=== PATIENT | female | born 2000 | race Hispanic/Latino ===

== ENCOUNTER 2022-01-15 19:46 | Emergency (ER) | payer SELFPAY ==
[2022-01-15 19:47] VITALS: BP 109/61; PULSE 71; RESP 14; TEMP 36.4; O2SAT 100; BMI 25.6
--- NOTE | 2022-01-15 20:05 | CT_ITS ---
STUDY: CT ABDOMEN AND PELVIS WITH CONTRAST REASON FOR EXAM: Female, 21 years old. Lower abdominal pain with nausea and vomiting for 1 week. RADIATION DOSAGE (If Supplied By Facility): CTDIvol = ( 13.06 ) mGy, DLP = ( 609.90 ) mGycm TECHNIQUE: Transaxial images were obtained from the dome of the diaphragm to the symphysis pubis without oral contrast. IV 100mL Isovue-370 was administered. Sagittal and coronal images were reconstructed. Individualized dose optimization techniques were used for this CT. COMPARISON: None. FINDINGS: The visualized lung bases are unremarkable. The visualized portions of the heart are within normal limits. Normal liver. Or filling defects in the gallbladder without wall thickening or inflammatory change. No biliary ductal dilatation. Normal spleen. Normal pancreas. Normal bilateral adrenal glands. Normal right kidney. Normal left kidney. Normal visualized ureters. Normal visualized stomach. Normal small intestine. Normal colon. The appendix is visualized and appears normal. Normal abdominal aorta. Normal inferior vena cava. Normal retroperitoneum. Normal urinary bladder. Uterus is prominent and anteverted but tilted to the left. There are calcifications centrally with a fluid density mass. The possibility of an intrauterine cannot be entirely ruled out. There is a 2.4 x 4.9 x 2.8 cm right ovarian cyst. Normal left ovary. Prominent vasculature in left broad ligament with. Question pelvic congestion. No free air or free fluid is seen within the abdominal cavity. No pelvic lymphadenopathy. Normal abdominal wall. Normal osseous structures. CT/Abdomen/Pelvis W IV Cont ONLY IMPRESSION: 1. Fluid density mass with adjacent calcifications within the endometrial canal. The possibility of an intrauterine cannot be ruled out. 2. Large right ovarian cyst. 3. Otherwise normal CT of the abdomen and pelvis Electronically Signed: Nitin Gutierrez DO at 21:15 EDT ,
--- NOTE | 2022-01-15 20:07 | ED.VIS.GI ---
HPI HPI - GI History of Present Illness Chief Complaint: Abd Pain Informant: patient and friend Abdominal Pain/Flank Pain Onset: Days Context: Gradual Onset Timing: Continuous Location: RLQ and LLQ Current Severity: Mild Maximum Severity: Mild Worsened by: Nothing Relieved by: Nothing Nausea/Vomiting/Emesis GI Symptom: Positive for Nausea and Vomiting Severity: Mild Diarrhea/Melena/Hematochezia GI Symptom: Negative for Diarrhea, Melena or Hematochezia Associated Symptoms Associated Symptoms: Negative for Dysuria, Frequency, Hematuria or Urgency Narrative Narrative: 21-year-old Spanish female who does not speak Dominican but is a friend in the 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 Patient reportedly had abdominal pain for approximately a week. With associated nausea vomiting. No diarrhea. No dysuria. No hematuria. She has been 1 time and has 1 child. Denies any pelvic pain. No vaginal bleeding or discharge. No melena. No fever. No weight loss. She is never had any abdominal surgeries. Her last menstrual period was approximately 7 days ago around January 08. Prior similar symptoms: No Recent Illness/Hospitalization: No PFSH PFSH Medical History no medical history no medical history Home Medications ondansetron 4 mg disintegrating tablet 4 mg PO Q6H PRN nausea and vomiting #10 tabs 01/15/22 [Rx Last Taken Unknown] Allergy/AdvReac Type Severity Reaction Status Date / Time No Known Allergies Allergy Verified 01/15/22 19:47 Surgical History no surgical history no surgical history Social History Smoking Status: Never smoker ROS ROS ED ROS Narrative Lower abdominal pain with nausea and vomiting. Review of Systems ROS Unobtainable: Denies due to encephalopathy Constitutional Constitutional ED: Denies chills or fever(s) ENT ENT ED: Denies ear pain Cardiovascular Cardiovascular: Denies chest pain Respiratory/Chest Respiratory/Chest: Denies cough Gastrointestinal Gastrointestinal: Reports abdominal pain, nausea and vomiting; Denies constipation, diarrhea or melena Genitourinary Genitourinary ED: Denies dysuria or hematuria Musculoskeletal Musculoskeletal: Denies arthralgias Integumentary Denies abscess Neurologic Neurologic: Denies headache(s) Psychiatric Psychiatric: Denies anxiety Endocrine Endocrinology: Denies polydipsia Hematologic/Lymphatic Hematologic/Lymphatic: Denies easy bleeding Allergic/Immunologic Allergic/Immunologic ED: Denies mouth swelling or tongue swelling EXAM Physical Exam Narrative Exam Narrative: Well-appearing 21-year-old female. Vital signs stable afebrile. H EENT exam unremarkable. Neck nontender. Lungs clear to auscultation bilaterally. Heart regular rhythm rate about 70 no murmur. Abdomen soft nondistended normal bowel sounds no peritoneal signs. No Sosa's sign or McBurney's point tenderness. No hernia or mass. No signs of obstruction. Very mild bilateral lower quadrant tenderness. Moving all 4 extremities. Back nontender. Neurologically moving all 4 extremities. Awake and alert. Const Vital Signs: 01/15/22 19:47 Temperature 97.5 F L Temperature Source Temporal Pulse Rate 71 Respiratory Rate 14 Blood Pressure 109/61 Blood Pressure Mean 77 Pulse Ox 100 Oxygen Delivery Method Room Air Positive well nourished and well developed; Negative for obese, cachectic, contractures or unkempt General Appearance ED: well developed and NAD; Negative for unkempt, cachectic, contractures or pallor Nutritional Appearance: Negative for cachectic or obese HEENT Reports moist mucous membranes normocephalic and atraumatic; Negative for trauma or tenderness Eyes PERRL and EOMs intact bilaterally General Eye ED: Negative for pale conjunctiva or scleral icterus Neck no lymphadenopathy, supple and no JVD General: Negative for tenderness Carotids: Negative for other Lymph Lymphatic: Negative for other Resp normal respiratory effort and clear to auscultation bilaterally Effort and Inspection: Negative for respiratory distress or retractions Auscultation: Negative for rales, rhonchi or wheezes Cardio regular rate, regular rhythm, S1 normal heart sound, S2 normal heart sound and no murmurs Rate: Negative for bradycardia Rhythm: Negative for abnormal rhythm GI non-distended and no masses; Negative for non-tender Inspection: Negative for abdominal distention Auscultation: normoactive bowel sounds Palpation: soft and tender; Negative for guarding, rigid, hepatomegaly, splenomegaly, hernia, mass, pulsatile mass or rebound tenderness present Back/Spine no CVA tenderness General Back: Negative for CVA tenderness Cervical Spine: Negative for cervical spine tenderness Thoracic Spine / Upper Back: Negative for thoracic spinal tenderness Lumbar Spine / Lower Back: Negative for lumbar spinal tenderness Coccyx: Negative for other Extremity full ROM General Extremety ED: Negative for edema or tenderness General Extremity: Negative for edema Neuro moves all extremities Sensorium / Orientation: alert, oriented to person, oriented to place and oriented to time; Negative for orientation impaired, confused, lethargic or stuporous Motor Exam: strength 5/5 throughout Psych mental status grossly normal and thought process normal Appearance: Negative for unkempt Attitude: No agitated Mood & Affect: Negative for depressed, anxious or tearful Skin General Skin Exam: Negative for jaundice or pallor Lesions: no lesions Rashes: no rashes Trauma: Negative for abrasion Nails: Negative for discolored MDM MDM MDM Narrative Medical decision making narrative: 21-year-old female with lower quadrant abdominal pain. Screening labs as well as a CAT scan and urinalysis will be obtained. She will be given Zofran for nausea. She is not in significant pain. IV fluids. Repeat exam patient is doing well at 10:30 PM. Abdomen benign. I discussed with her and the 2 men present in room that she is . Otherwise she has a right ovarian cyst. Ultrasound being obtained. If the ultrasound shows a single live IUP she will be discharged home to follow-up with local [facility]. Written a prescription for Zofran for nausea. Lab Data Attestation: I reviewed the patient's lab results. Lab results narrative: CBC normal white count 9.1. H&H 13.5 and 40. Electrolytes unremarkable gap of 8. Normal BUN and creatinine. Liver enzymes normal. Lipase normal. test positive. Urinalysis shows 10-25 white cells. No bacteria nor nitrates. A culture will be sent CAT scan shows a suspected right ovarian cyst and potential intrauterine . Labs: Laboratory Results - last 24 hr 01/15/22 01/15/22 01/15/22 20:15 20:15 20:15 WBC 9.1 RBC 4.63 Hgb 13.5 Hct 40.4 MCV 87.3 MCH 29.2 MCHC 33.4 RDW Std Deviation 43.0 RDW Coeff of Erica 13.4 Plt Count 316 MPV 9.3 Immature Gran % (Auto) 0.200 Neut % (Auto) 57.3 Lymph % (Auto) 35.1 [place] % (Auto) 6.2 Eos % (Auto) 1.0 Baso % (Auto) 0.2 Absolute Neuts (auto) 5.2 Absolute Lymphs (auto) 3.18 Nucleated RBC % 0 Sodium 138 Potassium 3.8 Chloride 106 Carbon Dioxide 24.0 Anion Gap 8 BUN 8 Creatinine 0.51 L Estim Creat Clear Calc 145.56 Est GFR (MDRD) Af Amer 198 Est GFR (MDRD) Non-Af 164 BUN/Creatinine Ratio 15.7 Glucose 85 Calcium 9.7 Total Bilirubin 0.40 AST 21 ALT 24 Alkaline Phosphatase 89 Total Protein 8.1 Albumin 4.0 Globulin 4.1 Albumin/Globulin Ratio 1.0 Lipase 121 Serum , Qual POSITIVE H Urine Color Urine Clarity Urine pH Ur Specific [place] Urine Protein Urine Glucose (UA) Urine Ketones Urine Occult Blood Urine Nitrite Urine Bilirubin Urine Urobilinogen Ur Leukocyte Esterase Urine RBC Urine WBC Ur Squamous Epith Cells Urine Bacteria Urine Mucus 01/15/22 21:15 WBC RBC Hgb Hct MCV MCH MCHC RDW Std Deviation RDW Coeff of Erica Plt Count MPV Immature Gran % (Auto) Neut % (Auto) Lymph % (Auto) [place] % (Auto) Eos % (Auto) Baso % (Auto) Absolute Neuts (auto) Absolute Lymphs (auto) Nucleated RBC % Sodium Potassium Chloride Carbon Dioxide Anion Gap BUN Creatinine Estim Creat Clear Calc Est GFR (MDRD) Af Amer Est GFR (MDRD) Non-Af BUN/Creatinine Ratio Glucose Calcium Total Bilirubin AST ALT Alkaline Phosphatase Total Protein Albumin Globulin Albumin/Globulin Ratio Lipase Serum , Qual Urine Color Straw Urine Clarity Clear Urine pH 7.0 Ur Specific [place] 1.005 Urine Protein Negative Urine Glucose (UA) Normal Urine Ketones Negative Urine Occult Blood Negative Urine Nitrite Negative Urine Bilirubin Negative Urine Urobilinogen Normal Ur Leukocyte Esterase 500 H Urine RBC 0 SEEN Urine WBC 10-25 SEEN Ur Squamous Epith Cells 0-5 SEEN Urine Bacteria 0 SEEN Urine Mucus 0 SEEN Radiography Diagnostic Testing: Clinical Impression(s) from Imaging Studies Abdomen/Pelvis CT 01/15/22 20:05 IMPRESSION: 1. Fluid density mass with adjacent calcifications within the endometrial canal. The possibility of an intrauterine cannot be ruled out. 2. Large right ovarian cyst. 3. Otherwise normal CT of the abdomen and pelvis Electronically Signed: Nitin Gutierrez DO at 21:15 EDT Reading Location ID and State: [facility] / [place] Tel [phone], Service support , Discharge Plan Triage Chief Complaint: Abd Pain ED Provider: Kalyan Saunders Dx/Rx/DC Orders Clinical Impression: Abdominal pain, First trimester , Ovarian cyst Instructions: Abdominal Pain, 1st Trimester, ED Ovarian Cyst Prescriptions: New ondansetron 4 mg tablet,disintegrating 4 mg PO Q6H PRN (Reason: nausea and vomiting) Qty: 10 0RF Primary Care Provider: Care Physician,No Primary Referrals: Kyung Schmid CNM [Med Staff - Adv Practice Prof] - As soon as possible Ksenia Michaels MD [Med Staff - Courtesy Staff] - As soon as possible Care Physician,No Primary [Primary Care Provider] - Activity Restrictions/Additional Instructions: You are . You also have a cyst on your right ovary. Tylenol for pain. Zofran for nausea. Call and follow-up with either Dr. Ksenia Michaels in [place] or Kyung Schmid here in [place] for your [facility] care. You need to be seen within the next week. Plenty of fluids and rest. Print Language: Burmese Disposition Disposition: Home, Self Care
--- NOTE | 2022-01-15 20:23 | ED.RN ---
lmp 11/19/21
[2022-01-15] MEDS: 0.9% Normal Saline 1,000 ML 1000 ML IV (20:26)
[2022-01-15] MEDS: Ondansetron 4 MG/2 ML Vial IV (20:26)
[2022-01-15 20:33] LABS: Absolute Lymphocyte Count 3.18 X10^3/uL (0.83-4.51); Absolute Neutrophil Count 5.2 X10^3/uL (2.0-7.7); Basophil# 0.02 X10^3/uL; Basophil% 0.2 % (0-1); Eosinophil# 0.09 X10^3/uL; Hematocrit 40.4 % (37-47); Hemoglobin 13.5 g/dL (12.0-15.0); Lymphocyte # 3.18 X10^3/ul (0.83-4.51); Lymphocyte % 35.1 % (19-41); Mean Corp Hgb Conc 33.4 g/dL (32-36); Mean Corpuscular Hgb 29.2 pg (27.0-32.0); Mean Corpuscular Volume 87.3 fL (81-99); Mean Platelet Vol. 9.3 fl (6.2-12.0); Monocyte# 0.56 X10^3/uL; Monocyte% 6.2 % (0-10); NRBC Flagged by Analyzer 0 % (0-5); Neutrophil # 5.19 X10^3/uL (2.7-7.7); Neutrophil % 57.3 % (47-70); Platelet Count 316 K/mm3 (150-450); RBC Distribution Width CV 13.4 % (11.6-14.6); Red Blood Count 4.63 M/mm3 (4.2-5.4); White Blood Count 9.1 K/mm3 (4.4-11.0)
[2022-01-15 20:45] LABS: Internal QC Validated? YES +Cl - CLEAR BKGD
[2022-01-15 20:48] LABS: Pregnancy, Serum, hCG Quali. POSITIVE Negative
[2022-01-15 20:52] LABS: AST(SGOT) 21 U/L (15-37); Alanine Aminotransfer ALT/SGPT 24 U/L (13-56); Alkaline Phosphatase 89 U/L (45-117); Anion Gap 8 (5-15); BUN 8 mg/dL (7-18); BUN/Creat Ratio 15.7 RATIO (10-20); Calcium,Total 9.7 mg/dL (8.5-10.1); Chloride 106 mmol/L (98-107); Creatinine, Serum 0.51 mg/dL (0.55-1.02); EST Glomerular Filtration Rate 164 mL/min (>60); Est Glom Filt Rate - Afr Amer 198 mL/min (>60); Estimated Creatinine Clearance 145.56 ml/min; Globulin 4.1 g/dL (2.2-4.2); Glucose 85 mg/dL (74-106); Lipase 121 U/L (73-393); Potassium 3.8 mmol/L (3.5-5.1); Protein, Total 8.1 g/dL (6.4-8.2); Sodium Level 138 mmol/L (136-145)
[2022-01-15 21:23] LABS: Bacteria 0 SEEN /hpf (None Seen); Mucous, Urine 0 SEEN /hpf (<or=2+); Red Blood Cells-Urine 0 SEEN /hpf (0-5)
[2022-01-15 21:31] LABS: Color, Urine Straw (Yellow); Glucose, Dipstick Normal (Normal); Ketone-Dipstick Negative (Negative); Leukocyte Esterase-Dipstick 500 /ul (Negative); Nitrite-Dipstick Negative (Negative); Occult Blood-Urine Negative /ul (Negative); Protein-Dipstick Negative (Negative); Specific Gravity, Urine 1.005 (1.002-1.030); Urine Bilirubin Dipstick Negative (Negative); Urine Clarity Clear (Clear); Urine Urobilinogen Normal (Normal)
[2022-01-15 21:53] LABS: Squamous Epithelial Cells - UA 0-5 SEEN /hpf (5-10); White Blood Cells 10-25 SEEN /hpf (0-5)
--- NOTE | 2022-01-15 22:26 | US_ITS ---
STUDY: FIRST TRIMESTER OBSTETRICAL ULTRASOUND REASON FOR EXAM: Female, 21 years old. Pelvic pain. LMP: 11/19/2021. TECHNIQUE: Transvaginal TECHNICAL QUALITY: Adequate. PRIOR ULTRASOUND: CT of the abdomen and pelvis, 01/15/2022 FINDINGS: There is visualization of a single gestational sac in a normal intrauterine position. The mean sac diameter (MSD) measures 2.44 cm, indicating an estimated gestational age (EGA) of 7 weeks, 3 days. The gestational sac shape is within normal limits. There is a visualized yolk sac. The yolk sac measures 0.28 cm. The placenta is non-visualized. There is visualization of a live embryo. The crown-rump length (CRL) measures 1.28 cm, indicating an estimated gestational age (EGA) of 7 weeks, 4 days. There is demonstrated cardiac activity with a heart rate of 152 bpm. The estimated gestation age (EGA) by LMP is 8 weeks, 1 days. The estimated date of delivery (KHUSHI) by LMP is 08/26/2022. The estimated gestation age (EGA) by US is 7 weeks, 4 days. The estimated date of delivery (KHUSHI) by US is 08/30/2022. The uterus measures 11.2 x 7.1 x 5.3 cm. This is small subchorionic hemorrhage measuring 0.7 x 1.8 x 0.5 cm this lies along the inferior aspect of the gestational sac. There is no demonstrated uterine fibroid. The cervix is closed. The right ovary measures 5.3 x 4.1 x 3.1 cm. There is a 3.2 x 3.4 x 2.9 cm simple cyst. There is no visualized right adnexal mass or complex lesion. Normal vascularity and DOPPLER imaging. The left ovary measures 3.4 x 2.4 x 1.4 cm. There is a 1.8 x 1.4 x 1.1 cm dominant follicle. There is no visualized left adnexal mass or complex lesion. There are prominent vessels in the broad ligament. There is no fluid in the cul de sac. US/Transvaginal w/Preg US IMPRESSION: 1. Single live intrauterine at 7 weeks, 4 days. KHUSHI is 08/30/2022. 2. heart rate of 142 bpm. 3. Small subchorionic hemorrhage. 4. Large right ovarian cyst. Question corpus luteum cyst. 5. Smaller left ovarian cyst versus dominant follicle. 6. Prominent vasculature in the left broad ligament. Question pelvic congestion. Electronically Signed: Nitin Gutierrez DO at 23:24 EDT Reading Location ID and State: [address] [place] [address] Tel [phone], Service support ,
[2022-01-15 23:13] VITALS: BP 130/74; PULSE 77; RESP 17; O2SAT 99
== END 2022-01-15 23:51 | disposition home or self-care (01) ==
PROVIDERS: Emergency Provider Emergency Medicine; Visit Provider Emergency Medicine
DX: O26.891 Other specified pregnancy related conditions, first trimester (principal); N83.201 Unspecified ovarian cyst, right side; O21.9 Vomiting of pregnancy, unspecified; O99.891 Other specified diseases and conditions complicating pregnancy; R10.30 Lower abdominal pain, unspecified
CPT/HCPCS: 74177; 76817; 80053; 81001; 83690; 84703; 85025; 87077; 87086; 87088; 96361; 96374; 99283; J7030; Q9967; A4216; J2405